=== PATIENT | female | born 1955 | race American Indian/Alaskan Native ===

== ENCOUNTER 2018-10-02 14:53 | Emergency (ER) | payer BC, MEDICARE ==
[2018-10-02 15:14] VITALS: BP 146/82; PULSE 84; RESP 16; TEMP 98.4; O2SAT 98
[2018-10-02] MEDS ORDERED: Sodium Chloride 0.9% 1,000 ML IV ONE (15:35)
[2018-10-02] MEDS ORDERED: Bacitracin 500 Units/gm Oint Foilpak UD TOP ONE (15:35)
[2018-10-02] MEDS ORDERED: Bacitracin 500 Units/gm Oint Foilpak UD ONE (15:42)
[2018-10-02 16:06] LABS: EOS # 0.1 (0.0-0.7); EOS % 1.5 % (1.5-5.0); HEMOGLOBIN 9.5 g/dL (12.0-16.0); LYMPH # 1.8 (1.2-3.4); LYMPH % 46.1 % (22.0-35.0); MEAN CORPUSCULAR HEMOGLOBIN 29.6 pg (25.0-35.0); MEAN CORPUSCULAR HGB CONC 31.1 g/dl (31.0-37.0); MEAN PLATELET VOLUME 10.6 fl (7.0-11.0); MONO # 0.3 (0.1-0.6); MONO % 8.5 % (1.0-6.0); RBC 3.21 10^6/uL (3.5-6.1); RED CELL DISTRIBUTION WIDTH 13.5 % (11.5-14.5)
[2018-10-02 16:16] LABS: ALB/GLOB RATIO 1.1 (1.1-1.8); ALBUMIN 4.2 g/dL (3.0-4.8); ALT/SGPT 10 U/L (7-56); AMYLASE 92 U/L (35-125); AST/SGOT 28 U/L (14-36); BLOOD UREA NITROGEN 18 mg/dL (7-21); CALCIUM 8.9 mg/dL (8.4-10.5); GFR NON-AFRICAN AMERICAN > 60; LIPASE 38 U/L (23-300)
--- NOTE | 2018-10-02 17:03 | CT ---
Date of service: 10/02/2018 PROCEDURE: CT Abdomen and Pelvis without intravenous contrast HISTORY: upper abdominal pain COMPARISON: None. TECHNIQUE: Without contrast.. Contrast dose: Radiation dose: Total exam DLP = 413.95 mGy-cm. This CT exam was performed using one or more of the following dose reduction techniques: Automated exposure control, adjustment of the mA and/or kV according to patient size, and/or use of iterative reconstruction technique. FINDINGS: LOWER THORAX: Unremarkable. LIVER: Unremarkable. No gross lesion or ductal dilatation. GALLBLADDER AND BILE DUCTS: Unremarkable. PANCREAS: Unremarkable. No gross lesion or ductal dilatation. SPLEEN: Unremarkable. ADRENALS: Unremarkable. No mass. KIDNEYS AND URETERS: Unremarkable. No hydronephrosis. No solid mass. VASCULATURE: Unremarkable. No aortic aneurysm. No aortic atherosclerotic calcification or mural plaque present. BOWEL: Unremarkable. No obstruction. No gross mural thickening. Mild constipation APPENDIX: Unremarkable. Normal appendix. PERITONEUM: Unremarkable. No free fluid. No free air. LYMPH NODES: Unremarkable. No enlarged lymph nodes. BLADDER: Unremarkable. REPRODUCTIVE: Unremarkable. BONES: No acute fracture. OTHER FINDINGS: None. IMPRESSION: No acute intra-abdominal findings
--- NOTE | 2018-10-02 19:41 | ED PDOC ---
Arrival/HPI - General Chief Complaint: Abdominal Pain Historian: Patient - History of Present Illness Narrative History of Present Illness (Text): 10/02/18 19:38 A 63 year old female presents to the emergency department complaining of diffuse abdominal pain and abscess over her left buttock for the past couple of days. States abscess opened on its own with clear discharge fluids. Patient denies any nausea, vomiting, diarrhea, or any other complaints at this time. Past Medical History - Provider Review Nursing Documentation Reviewed: Yes - Infectious Disease Hx of Infectious Diseases: None - Cardiac Hx Cardiac Disorders: No - Pulmonary Hx Respiratory Disorders: No - Neurological Hx Neurological Disorder: Yes Hx Migraine: Yes - HEENT Hx HEENT Disorder: No - Renal Hx Renal Disorder: No - Endocrine/Metabolic Hx Endocrine Disorders: No - Hematological/Oncological Hx Blood Disorders: No - Integumentary Hx Dermatological Disorder: No - Musculoskeletal/Rheumatological Hx Musculoskeletal Disorders: Yes Hx Osteomyelitis: Yes - Gastrointestinal Hx Gastrointestinal Disorders: Yes Hx Pancreatitis: Yes - Genitourinary/Gynecological Hx Genitourinary Disorders: No - Psychiatric Hx Psychophysiologic Disorder: No Hx Substance Use: No - Surgical History Other/Comment: STENTS DUCTS OF PANCREAS - Anesthesia Hx Anesthesia: Yes Hx Anesthesia Reactions: No Family/Social History - Physician Review Nursing Documentation Reviewed: Yes Family/Social History: No Known Family HX Smoking Status: Unknown If Ever Smoked Hx Alcohol Use: No Hx Substance Use: No Allergies/Home Meds Allergies/Adverse Reactions: Allergies orange juice Allergy (Verified 10/02/18 15:06) RASH phenazopyridine HCl [From Pyridium] Allergy (Verified 10/02/18 15:06) RASH prochlorperazine [From Compazine] Allergy (Verified 10/02/18 15:06) RASH prochlorperazine edisylate [From Compazine] Allergy (Verified 10/02/18 15:06) RASH prochlorperazine maleate [From Compazine] Allergy (Verified 10/02/18 15:06) RASH Home Medications: Home Meds Medication Instructions Recorded Confirmed Esomeprazole Magnesium [Nexium] 40 mg PO DAILY 10/02/18 10/02/18 Metoclopramide [Reglan] 10 mg PO TID 10/02/18 10/02/18 Ondansetron [Zofran Tab] 8 mg PO PRN PRN 10/02/18 10/02/18 Review of Systems - Physician Review All systems were reviewed & negative as marked: Yes - Review of Systems Gastrointestinal: Abdominal Pain. absent: Diarrhea, Nausea, Vomiting Skin: Abscess (left buttock) Physical Exam Vital Signs Reviewed: Yes Vital Signs Temp Pulse Resp BP Pulse Ox 10/02/18 15:08 98.4 F 84 16 146/82 98 Temperature: Afebrile Blood Pressure: Normal Pulse: Regular Respiratory Rate: Normal Appearance: Positive for: Well-Appearing, Non-Toxic, Comfortable Pain Distress: None Mental Status: Positive for: Alert and Oriented X 3 - Systems Exam Head: Present: Atraumatic, Normocephalic Pupils: Present: PERRL Extroacular Muscles: Present: EOMI Conjunctiva: Present: Normal Mouth: Present: Moist Mucous Membranes Neck: Present: Normal Range of Motion Respiratory/Chest: Present: Clear to Auscultation, Good Air Exchange. No: Respiratory Distress, Accessory Muscle Use Cardiovascular: Present: Regular Rate and Rhythm, Normal S1, S2. No: Murmurs Abdomen: Present: Tenderness (diffuse tenderness). No: Distention, Peritoneal Signs Back: Present: Normal Inspection Upper Extremity: Present: Normal Inspection. No: Cyanosis, Edema Lower Extremity: Present: Normal Inspection. No: Edema Neurological: Present: GCS=15, CN II-XII Intact, Speech Normal Skin: Present: Warm, Dry, Normal Color, Abscess (left buttock 1-1/5 cm in diameter abscess with drainage). No: Rashes Psychiatric: Present: Alert, Oriented x 3, Normal Insight, Normal Concentration Medical Decision Making ED Course and Treatment: 10/02/18 19:41 Impression: 63 year old female with diffuse abdominal pain and abscess over her left buttock. Plan: -- Bacitracin -- Pepcid -- Toradol -- Zofran -- IV Fluids -- Urine Culture -- Urinalysis -- Abd/Pelvis CT -- Labs -- Reassess and disposition Progress Notes: 10/02/2018 14:00 Abd/Pelvis CT IMPRESSION: No acute intra-abdominal findings. Dictator: Wilfredo Sung MD - Lab Interpretations Lab Results: Total Bilirubin 0.2 mg/dL (0.2-1.3) 10/02/18 16:00 AST 28 U/L (14-36) 10/02/18 16:00 ALT 10 U/L (7-56) 10/02/18 16:00 Alkaline Phosphatase 103 U/L (38-126) 10/02/18 16:00 Total Protein 8.0 g/dL (5.8-8.3) 10/02/18 16:00 Albumin 4.2 g/dL (3.0-4.8) 10/02/18 16:00 Globulin 3.8 gm/dL 10/02/18 16:00 Albumin/Globulin Ratio 1.1 (1.1-1.8) 10/02/18 16:00 Amylase 92 U/L (35-125) 10/02/18 16:00 Lipase 38 U/L (23-300) 10/02/18 16:00 - RAD Interpretation Radiology Orders: 10/02/18 15:33 ABD & PELVIS W/O PO OR IV CONT [CT] Stat - Medication Orders Current Medication Orders: Discontinued Medications Bacitracin (Bacitracin) 1 ea TOP ONCE ONE Stop: 10/02/18 15:36 Last Admin: 10/02/18 17:19 Dose: 1 ea Famotidine (Pepcid) 20 mg IVP STAT STA Stop: 10/02/18 15:34 Last Admin: 10/02/18 17:18 Dose: 20 mg IVP Administration Document 10/02/18 17:18 VV (Rec: 10/02/18 17:18 VV [id number]) Charges for Administration # of IVP Administrations 1 Sodium Chloride (Sodium Chloride 0.9%) 1,000 mls @ 250 mls/hr IV .Q4H ONE Stop: 10/02/18 19:34 Last Admin: 10/02/18 17:19 Dose: 250 mls/hr eMAR Start Stop Document 10/02/18 17:19 VV (Rec: 10/02/18 17:19 VV [id number]) Intravenous Solution Start Date 10/02/18 Start Time 17:19 End Date 10/02/18 End time 21:19 Total Infusion Time 240 Ketorolac Tromethamine (Toradol) 30 mg IVP STAT STA Stop: 10/02/18 15:37 Last Admin: 10/02/18 17:19 Dose: 30 mg MAR Pain Assessment Document 10/02/18 17:19 VV (Rec: 10/02/18 17:20 VV [id number]) Pain Reassessment Is this a pain reassessment? No Sleep Is patient sleeping during reassessment? No Presence of Pain Presence of Pain Yes Pain Scale Used Protocol: PSCALES Pain Scale Used Numeric Location Left, Right or Bilateral Left Pain Location Body Site Leg Description Description Constant IVP Administration Document 10/02/18 17:19 VV (Rec: 10/02/18 17:20 VV [id number]) Charges for Administration # of IVP Administrations 3 Ondansetron HCl (Zofran Inj) 4 mg IVP STAT STA Stop: 10/02/18 15:34 Last Admin: 10/02/18 17:18 Dose: 4 mg IVP Administration Document 10/02/18 17:18 VV (Rec: 10/02/18 17:19 VV [id number]) Charges for Administration # of IVP Administrations 2 - Scribe Statement The provider has reviewed the documentation as recorded by the Concepcionibalejandra Nguyễn Provider Scribe Attestation: All medical record entries made by the Scribe were at my direction and personally dictated by me. I have reviewed the chart and agree that the record accurately reflects my personal performance of the history, physical exam, medical decision making, and the department course for this patient. I have also personally directed, reviewed, and agree with the discharge instructions and disposition. Disposition/Present on Arrival - Present on Arrival Any Indicators Present on Arrival: No History of DVT/PE: No History of Uncontrolled Diabetes: No Urinary Catheter: No History of Decub. Ulcer: No History Surgical Site Infection Following: None - Disposition Have Diagnosis and Disposition been Completed?: Yes Diagnosis: Skin abscess Disposition: HOME/ ROUTINE Disposition Time: 17:00 Condition: GOOD Discharge Instructions (ExitCare): Skin Abscess Additional Instructions: DEMETRICE VILLALOBOS, thank you for letting us take care of you today. The emergency medical care you received today was directed at your acute symptoms. If you were prescribed any medication, please fill it and take as directed. It may take several days for your symptoms to resolve. Return to the Emergency Department if your symptoms worsen, do not improve, or if you have any other problems. Please contact your doctor or call one of the physicians/clinics you have been referred to that are listed on the Patient Visit Information form that is included in your discharge packet. Bring any paperwork you were given at discharge with you along with any medications you are taking to your follow up visit. Our treatment cannot replace ongoing medical care by a primary care provider outside of the emergency department. Thank you for allowing the [facility] team to be part of your care today. Keep area clean and dry. Apply ointment to area twice a day. Follow up with your primary care doctor in 3-5 days for re-evaluation and further management. Prescriptions: Bacitracin 14 gm TP BID #1 oint...g. Referrals: Juan Francisco Marshall MD [Family Provider] - Follow up with primary Forms: [facility] (Yoruba)
== END 2018-10-02 17:52 | disposition home or self-care (01) ==
LOC: ED 14:53
DX: L02.31 Cutaneous abscess of buttock (principal)
CPT/HCPCS: 74176; 80053; 82150; 83690; 83735; 85025; 96361; 96374; 96375; 99284; J1885; J2405; J7030